=== PATIENT | male | born 1970 | race Caucasian/White ===

== ENCOUNTER → 2023-10-30 18:00 | Outpatient (REF) | payer BC, SELFPAY ==
--- NOTE | 2023-10-20 10:16 | PN.DIAED02 ---
Referral
DSME Class Series Code: [id number]
Referred For: Diabetes Self-Management Training
PHI Release Authorization Form Signed: Yes
Demographic
(1) Type 2 diabetes mellitus with hyperglycemia
Status: Acute Code(s): E11.65 - Type 2 diabetes mellitus with hyperglycemia
Patient's primary language-: Moroccan
Education: Some college
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
Hours Worked/Week: 20-40 (40)
Shift: Day
- Social
Primary Support Person: Self & spouse
Primary Care Takers: Self
Living Arrangements: Self & spouse
- Learning Methods
Preferred Method: Video
Barriers to Learning: None
Glycemic Control
- Blood Glucose Monitoring Assessment
Date: 10/20/23
Blood glucose monitoring at home: Yes
Monitor Brands: OneTouch (Verio Reflect)
Frequency: 2x per day (currently testing FBS only, new testing pattern given)
Time: fasting, after breakfast, after lunch, after dinner
- Hemoglobin A1c
Date: 09/12/23
A1C Percentage (%): 9.8
Medical History of Diabetes
Family Diabetes History: Father
Previous Diabetes Education: No
Previous visit with Dietitian: No
Complications/Comorbidity/Specialist: Hypertension, Other / symptoms (hernia repair, 2019 bowel resection, diverticulitis)
Measures
- Anthropometrics
Height: 5 ft 7 in
Actual Weight: 165 lb 4 oz
- Blood Pressure / Pulse
Blood pressure: 133/84
- Diabetes Management
Medical Management for Diabetes: Complete physical exam (09/07/23), Dental exam (10/03/23), Dilated eye exam (09/28/23)
Self-Care
- Tobacco Usage
Do you now, or have you ever smoked?: Quit more than 1 year ago (12 years ago)
- Alcohol & Drugs Usage
Drinks Alcohol: Yes
Amount/day: Other (case of beer will last 2-3 months)
- Meals & Dining
Meals & Dining: Patient skips meals: Yes, Food Intolerance / Allergy: No, Cultural / Mandaen Dietary Needs: No
Primary Food Table Games Supervisor: Self & Spouse
Primary Utility Worker Film Processing: Self & Spouse
Dining Out Frequency: Rarely
- Physical Activity
Physical Limitation: No
Patient participates in physical Activity: No
- Patient-Self Assessment
Diabetes Knowledge: Poor
Feelings About Diabetes: Adaptation
General Health: Fair
Importance of Health: Somewhat
Stress Level: Medium
Diabetes Interferes With:: Nothing
Depression Survey Score: 0
Care Plan
- Education Needs
Patient Education Needs: Diabetes disease process, Chronic complications, Acute complications, Medication, Monitoring, Physical activity, Psychosocial Adjustment, Nutritional management, Goal setting & problem solving
Recommended Diabetes Training Program based on assessment: Outpatient Diabetes Education Program
- Plan of Care
Plan of Care:
Pako states recently diagnosed T2DM, A1C 9.8%. Taking Metformin 1000 mg with dinner, no side effects noted. Has a Verio Reflect at home and testing FBS only with results 121,135,150, 136, 143 mg/dl. New testing pattern given to add testing 2 hr pp
one meal/day. Rationale given as well as handout on testing pattern and expected results. Reviewed proper testing technique, he states he did watch the manufacture video and is performing accurately. Discussed importance of including protein with
each meal and snack. Handout on snack options given. Goals established including exercise. Directions to classroom given.
--- NOTE | 2023-10-20 10:28 | PN.DIAED04 ---
Education Record
- Education Record
Class Attended: Class 1 (pre registration 10/20/23 for outpt DSME classes starting 10/30/23.)
DSME Class Series Code: [id number]
Instructor: Registered Nurse (Cherise Gan, RN, BSN, [facility])
Class Curriculum:
Outpatient Diabetes Education Program:
Initial Assessment (45 minutes)
Individualized assessment
Develop personal strategies to promote health and behavior change
Development of diabetes self-management support plan
Class Length (mins): 60
Pre-Program Knowledge: No knowledge
Pre-Test Score (%): 50
Goals
- Goal 1
Being Active: Exercise 15 minutes-3 times per week (Goal is to ride bicycle, or walk. )
Goals To Be Evaluated: Exercise 15 mins-3x/week
- Goal 2
Healthy Eating: Make better food choices
Goals To Be Evaluated: Make better food choices
- Goal 3
Monitoring: Take blood sugar in the prescribed pattern
Goals To Be Evaluated: Test BG-prescribed times
--- NOTE | 2023-11-01 08:05 | PN.DIAED04 ---
Education Record
- Education Record
Class Attended: Class 1
DSME Class Series Code: [id number]
Instructor: Registered Nurse (Cherise Gan, RN, BSN, CDE)
Class Length (mins): 120
Post-Class 1 Test Score (%): 100
--- NOTE | 2023-11-01 08:05 | PN.DIAED14 ---
This is to notify you that your patient with diabetes, VALDO NICOLE ( 1970), has enrolled in our diabetes self-management classes [facility] held [facility].
These classes will include an introduction to diabetes, diet, medication, exercise and prevention of complications. At the end of our class series, you will receive a report of your patient's participation and progress for your records.
Please contact me at the [facility], , if there is any particular information regarding your patient that might be helpful to me.
Sincerely,
PURVI Cottrell-, [facility]
Diabetes & Nutrition Services Director
--- NOTE | 2023-11-02 09:55 | PN.DIAED06 ---
Meal Plans - Regular
- Meal Plan
Diabetic Meal Plan Name: 1800 calories
Breakfast - Total Carbohydrate (grams): 45
Breakfast - Starch Carbohydrate: 0
Breakfast - Fruit Carbohydrate: 0
Breakfast - Milk Carbohydrate: 0
Breakfast - Nonstarchy Vegetables: Yes
Breakfast - Meat/Protein: 1
Breakfast - Fat: 2
Morning Snack - Total Carbohydrate (grams): 15
Morning Snack - Starch Carbohydrate: 0
Morning Snack - Fruit Carbohydrate: 0
Morning Snack - Milk Carbohydrate: 0
Morning Snack - Nonstarchy Vegetables: Yes
Morning Snack - Meat/Protein: 0.5
Morning Snack - Fat: 0
Lunch - Total Carbohydrate (grams): 45
Lunch - Starch Carbohydrate: 0
Lunch - Fruit Carbohydrate: 0
Lunch - Milk Carbohydrate: 0
Lunch - Nonstarchy Vegetables: Yes
Lunch - Meat/Protein: 3
Lunch - Fat: 1
Afternoon Snack - Total Carbohydrate (grams): 15
Afternoon Snack - Starch Carbohydrate: 0
Afternoon Snack - Fruit Carbohydrate: 0
Afternoon Snack - Milk Carbohydrate: 0
Afternoon Snack - Nonstarchy Vegetables: Yes
Afternoon Snack - Meat/Protein: 0.5
Afternoon Snack - Fat: 0
Dinner - Total Carbohydrate (grams): 45
Dinner - Starch Carbohydrate: 0
Dinner - Fruit Carbohydrate: 0
Dinner - Milk Carbohydrate: 0
Dinner - Nonstarchy Vegetables: Yes
Dinner - Meat/Protein: 3
Dinner - Fat: 2
Evening Snack - Total Carbohydrate (grams): 15
Evening Snack - Starch Carbohydrate: 0
Evening Snack - Fruit Carbohydrate: 0
Evening Snack - Milk Carbohydrate: 0
Evening Snack - Nonstarchy Vegetables: Yes
Evening Snack - Meat/Protein: 0
Evening Snack - Fat: 0
== END ==
LOC: DES 18:00
PROVIDERS: ATTENDING PHYSICIAN Family Medicine
DX: E11.65 Type 2 diabetes mellitus with hyperglycemia (principal)
CPT/HCPCS: 99078

== ENCOUNTER → 2023-11-06 12:00 | Outpatient (REF) | payer BC, SELFPAY ==
--- NOTE | 2023-11-08 08:22 | PN.DIAED04 ---
Education Record
- Education Record
Class Attended: Class 2
[facility] Code: [id number]
Instructor: Registered Dietitian (Davina Kiser, ANTONN, LDN)
Class Length (mins): 120
== END ==
LOC: DES 12:00
PROVIDERS: ATTENDING PHYSICIAN Family Medicine
DX: E11.65 Type 2 diabetes mellitus with hyperglycemia (principal)
CPT/HCPCS: 99078

== ENCOUNTER → 2023-11-13 18:00 | Outpatient (REF) | payer BC, SELFPAY ==
--- NOTE | 2023-11-15 08:12 | PN.DIAED04 ---
Education Record
- Education Record
Class Attended: Class 3
DSME Class Series Code: [id number]
Instructor: Registered Dietitian (Iris Longo, RD, LDN, CDE)
Class Length (mins): 120
Post-Class 2 & 3 Test Score (%): 88
== END ==
LOC: DES 18:00
PROVIDERS: ATTENDING PHYSICIAN Family Medicine
DX: E11.65 Type 2 diabetes mellitus with hyperglycemia (principal)
CPT/HCPCS: 99078

== ENCOUNTER → 2023-11-20 18:00 | Outpatient (REF) | payer BC, SELFPAY ==
--- NOTE | 2023-11-22 12:30 | PN.DIAED04 ---
Education Record
- Education Record
Class Attended: Class 4
DSME Class Series Code: [id number]
Instructor: Registered Nurse (Cherise Gan, RN, BSN, CDE)
Class Length (mins): 120
Post-Class 4 Test Score (%): 100
== END ==
LOC: DES 18:00
PROVIDERS: ATTENDING PHYSICIAN Family Medicine
DX: E11.65 Type 2 diabetes mellitus with hyperglycemia (principal)
CPT/HCPCS: 99078

== ENCOUNTER → 2023-11-27 18:00 | Outpatient (REF) | payer BC, SELFPAY ==
--- NOTE | 2023-11-29 13:27 | PN.DIAED16 ---
This is to notify you that your patient with diabetes, VALDO NICOLE ( 1970), has attended the entire series of Diabetes Self-Management Education Classes.
Class 1 (120 minutes): Diabetes Overview - monitoring, stress/psychosocial adjustment, support, goal setting
Class 2 (120 minutes): Meal Planning - serving sizes, menu plans
Class 3 (120 minutes): Introduction to Carbohydrate Counting, Analyzing Food Labels
Class 4 (120 minutes): Medication, Exercise and Activity
Class 5 (120 minutes): Sick Day Management, Strategies to Reduce Complications, Problem Solving, Resources
The following behavioral goals were identified:
Exercise 15 mins-3x/week
Make better food choices
Test BG-prescribed times
A follow-up call will be made within three to six months to evaluate attainment of these goals and to check post-program Hemoglobin A1c and overall progress. All class participants are encouraged to contact me if I can be any further assistance in
learning how to manage their diabetes.
Sincerely,
PURVI Cottrell-, [facility]
Diabetes & Nutrition Services Director
== END ==
LOC: DES 18:00
PROVIDERS: ATTENDING PHYSICIAN Family Medicine
DX: E11.65 Type 2 diabetes mellitus with hyperglycemia (principal)
CPT/HCPCS: 99078